=== PATIENT | female | born 1970 | race American Indian/Alaskan Native ===

== ENCOUNTER 2021-10-07 12:25 | Emergency (ER) | payer SELFPAY ==
[2021-10-07] MEDS ORDERED: SODIUM CHLORIDE 0.9% 1000 ML 1,000 ML IV ONE ×2 (12:59)
[2021-10-07 13:40] VITALS: BP 123/81
[2021-10-07 13:49] LABS: Basophils # (Auto) 0.1 K/mm3 (0.0-0.1); Basophils % (Auto) 1.1 % (0.0-1.8); Eosinophils # (Auto) 0.2 K/mm3 (0.0-0.4); Eosinophils % (Auto) 1.9 % (0.0-4.3); Hematocrit 46.1 % (30.3-42.9); Hemoglobin 15.1 gm/dl (10.1-14.3); Lymphocytes # (Auto) 2.7 K/mm3 (1.2-5.4); Mean Corpuscular HGB Conc 33 % (30-34); Mean Corpuscular Volume 88 fl (79-97); Monocytes # (Auto) 0.6 K/mm3 (0.0-0.8); Monocytes % (Auto) 7.1 % (0.0-7.3); Platelet Count 194 K/mm3 (140-440); Red Blood Count 5.22 M/mm3 (3.65-5.03); Red Cell Distribution Width 14.4 % (13.2-15.2)
[2021-10-07 14:06] LABS: INR 0.96 (0.87-1.13)
[2021-10-07 14:14] LABS: Creatine Kinase MB 1.9 ng/mL (0.0-4.0)
[2021-10-07 14:15] LABS: Alanine Aminotransferase 22 units/L (7-56); BUN/Creatinine Ratio 14; Blood Urea Nitrogen 13 mg/dL (7-17); Hemolysis Index 38
--- NOTE | 2021-10-07 14:21 | XRay Report ---
CHEST 1 VIEW 10/07/2021 1:06 PM INDICATION / CLINICAL INFORMATION: Lightheadedness/Dizziness. COMPARISON: None available. FINDINGS: SUPPORT DEVICES: None. HEART / MEDIASTINUM: No significant abnormality. LUNGS / PLEURA: No significant pulmonary or pleural abnormality. No pneumothorax. ADDITIONAL FINDINGS: No significant additional findings. IMPRESSION: 1. No acute findings. Signer Name: Howie He MD Signed: 10/07/2021 2:17 PM Workstation Name: [id number]
[2021-10-07] MEDS ORDERED: INSULIN REGULAR, HUMAN 100 UNITS/1 ML IV ONE (14:24)
--- NOTE | 2021-10-07 16:24 | Emergency Department Report ---
ED General Adult HPI - General Chief complaint: Hyperglycemia Stated complaint: HYPERGLYCEMIA Time Seen by Provider: 10/07/21 12:56 Source: patient Mode of arrival: Ambulatory Limitations: No Limitations - History of Present Illness Initial comments: hyperglycemia ran out of insulin bs is 400 no nausea or abdominal p[ain vaccinated -: Gradual, days(s) Severity scale (0 -10): 0 Associated Symptoms: denies other symptoms Treatments Prior to Arrival: none - Related Data Previous Rx's Medication Instructions Recorded Last Taken Type Insulin NPH, Human [NovoLIN N] 100 unit SQ BID #30 ml 10/07/21 Unknown Rx Syringe-Needle,Insulin,0.5 ml 1 each MC BID #60 disp.syrin 10/07/21 Unknown Rx [Insulin Syringe/Needle 0.5 ML] Allergies Allergy/AdvReac Type Severity Reaction Status Date / Time No Known Allergies Allergy Unverified 10/07/21 12:35 ED Review of Systems ROS: Stated complaint: HYPERGLYCEMIA Other details as noted in HPI Constitutional: denies: chills, fever Eyes: denies: eye pain, eye discharge, vision change ENT: denies: ear pain, throat pain Respiratory: denies: cough, shortness of breath, wheezing Cardiovascular: denies: chest pain, palpitations Endocrine: no symptoms reported Gastrointestinal: denies: abdominal pain, nausea, diarrhea Genitourinary: denies: urgency, dysuria, discharge Musculoskeletal: denies: back pain, joint swelling, arthralgia Skin: denies: rash, lesions Neurological: denies: headache, weakness, paresthesias Psychiatric: denies: anxiety, depression Hematological/Lymphatic: denies: easy bleeding, easy bruising ED Past Medical Hx - Past Medical History Previous Medical History?: Yes Hx Diabetes: Yes - Surgical History Past Surgical History?: No - Social History Smoking Status: Current Every Day Smoker Substance Use Type: None - Medications Home Medications: Home Medications Medication Instructions Recorded Confirmed Last Taken Type Insulin NPH, Human [NovoLIN N] 100 unit SQ BID #30 ml 10/07/21 Unknown Rx Syringe-Needle,Insulin,0.5 ml 1 each MC BID #60 disp.syrin 10/07/21 Unknown Rx [Insulin Syringe/Needle 0.5 ML] ED Physical Exam - General Limitations: No Limitations General appearance: alert, in no apparent distress - Head Head exam: Present: atraumatic, normocephalic - Eye Eye exam: Present: normal appearance - ENT ENT exam: Present: mucous membranes moist - Neck Neck exam: Present: normal inspection - Respiratory Respiratory exam: Present: normal lung sounds bilaterally. Absent: respiratory distress - Cardiovascular Cardiovascular Exam: Present: regular rate, normal rhythm. Absent: systolic murmur, diastolic murmur, rubs, gallop - GI/Abdominal GI/Abdominal exam: Present: soft, normal bowel sounds - Extremities Exam Extremities exam: Present: normal inspection - Back Exam Back exam: Present: normal inspection - Neurological Exam Neurological exam: Present: alert, oriented X3 - Psychiatric Psychiatric exam: Present: normal affect, normal mood - Skin Skin exam: Present: warm, dry, intact, normal color. Absent: rash ED Course Vital Signs 10/07/21 10/07/21 10/07/21 12:41 13:00 13:36 Temperature 98.2 F 98.8 F Pulse Rate 122 H 102 H 109 H Respiratory 20 10 L 20 Rate Blood Pressure 123/81 123/81 Blood Pressure 136/85 [Right] O2 Sat by Pulse 96 98 97 Oximetry 10/07/21 10/07/21 10/07/21 14:00 15:00 16:00 Temperature Pulse Rate 103 H 97 H 99 H Respiratory 15 11 L 16 Rate Blood Pressure 123/81 123/81 123/81 Blood Pressure [Right] O2 Sat by Pulse 98 100 97 Oximetry - Reevaluation(s) Reevaluation #1: 10/07/21 16:22 fluids given insulin ED Medical Decision Making - Lab Data Result diagrams: 10/07/21 13:21 10/07/21 13:21 Critical care attestation.: If time is entered above; I have spent that time in minutes in the direct care of this critically ill patient, excluding procedure time. ED Disposition Clinical Impression: Hyperglycemia, Medication refill Disposition: 01 HOME / SELF CARE / HOMELESS Is pt being admited?: No Does the pt Need Aspirin: No Condition: Stable Instructions: Preventing Type 2 Diabetes Mellitus Prescriptions: Syringe-Needle,Insulin,0.5 ml [Insulin Syringe/Needle 0.5 ML] 1 each MC BID #60 disp.syrin Insulin NPH, Human [NovoLIN N] 100 unit SQ BID #30 ml Referrals: PRIMARY CARE, [Primary Care Provider] - 3-5 Days
--- NOTE | 2021-10-08 12:56 | Electrocardiograph Report ---
[facility] Test Date: 2021-10-07 Test Time: 12:53:53 Pat Name: MIS SIMS Department: Room: Gender: F Automotive Assembler: YARA : 1970 Requested By: YUMIKO TRISTAN Order Number: [id number] Reading MD: Naya Gibbons Measurements Intervals [place] Rate: 114 P: 39 [place]: 161 QRS: -3 QRSD: 83 T: 49 QT: 309 QTc: 427 Interpretive Statements Sinus tachycardia No previous ECG available for comparison Electronically Signed On 10-08-2021 12:56:03 EST by Naya Gibbons
== END 2021-10-07 17:39 | disposition home or self-care (01) ==
LOC: ED 12:25
DX: E11.65 Type 2 diabetes mellitus with hyperglycemia (principal)
CPT/HCPCS: 36415; 71045; 80053; 82140; 82550; 82553; 82962; 84484; 85025; 85610; 93005; 96361; 96374; 99284; J7030; 80320; Q0162; Q9967; G0480; J1815